=== PATIENT | female | born 1980 | race Caucasian/White ===

== ENCOUNTER 2017-04-15 05:00 | Inpatient (IN) | payer MEDICAID ==
[2017-04-15] MEDS ORDERED: CARBOPROST 250 MCG INJ IM ×2 (05:30→21:30)
[2017-04-15] MEDS ORDERED: METHYLERGONOVINE 0.2 MG INJ IM ×2 (05:30→21:30)
[2017-04-15] MEDS ORDERED: LIDOCAINE 1% (MPF) 30 ML INJ INJ (05:30)
[2017-04-15] MEDS ORDERED: MISOPROSTOL 200 MCG TAB PR ×2 (05:30→21:30)
[2017-04-15] MEDS ORDERED: IBUPROFEN 600 MG TAB PO (05:30)
[2017-04-15] MEDS ORDERED: OXYTOCIN 30 UNITS/LR 500 ML IV ×3 (05:30→21:30)
[2017-04-15] MEDS ORDERED: BUTORPHANOL 2 MG INJ IV (05:30)
[2017-04-15] MEDS: LACTATED RINGER'S 1,000 ML IV ×4 (06:00→17:57)
[2017-04-15 06:28] LABS: ADD MAN DIFF? NO
[2017-04-15 06:32] LABS: WHITE BLOOD COUNT 9.7 10^3/ul (4.8-10.8)
[2017-04-15 06:32] LABS: BASOPHILS % 0.4 % (0.0-2.0); EOSINOPHILS # 0.1 10^3/ul (0.0-0.5); HEMATOCRIT 36.8 % (37.0-47.0); HEMOGLOBIN 12.6 g/dl (12.0-16.0); LYMPHOCYTES # 2.4 10^3/ul (0.8-2.9); LYMPHOCYTES % 24.9 % (15.0-51.0); MEAN CORPUSCULAR HGB CONC 34.2 g/dl (32.0-37.0); MEAN CORPUSCULAR VOLUME 90.6 fl (82.0-101.0); MEAN PLATELET VOLUME 9.8 fl (7.4-10.4); MONOCYTE # 0.6 10^3/ul (0.3-0.9); MONOCYTES % 6.4 % (0.0-11.0); NEUTROPHIL # 6.5 10^3/ul (1.6-7.5); NEUTROPHILS % 66.7 % (39.0-77.0); PLATELET COUNT 364 10^3/UL (140-415); RED BLOOD COUNT 4.06 10^6/ul (4.20-5.40); RED CELL DISTRIBUTION WIDTH 12.9 % (11.5-14.5)
[2017-04-15 06:52] LABS: ADD UMIC YES; INR 0.99; PROTIME 13.2 Sec (11.9-14.9); UR ASCORBIC ACID NEGATIVE (NEGATIVE); UR BACTERIA FEW /HPF (NONE SEEN); UR BILIRUBIN (Dip) NEGATIVE (NEGATIVE); UR BLOOD (Dip) 1+ mg/dL (NEGATIVE); UR CLARITY CLEAR (CLEAR); UR COLOR YELLOW (YELLOW); UR GLUCOSE (Dip) NEGATIVE (NEGATIVE); UR KETONES (Dip) NEGATIVE (NEGATIVE); UR LEUKOCYTE ESTERASE (Dip) NEGATIVE Leu/ul (NEGATIVE); UR NITRITE (Dip) NEGATIVE (NEGATIVE); UR RBC 11 /HPF (0-5); UR SPECIFIC GRAVITY (Dip) 1.015 (1.003-1.030); UR SQUAMOUS EPITHELIAL CELL FEW /HPF (FEW); UR TOTAL PROTEIN (Dip) NEGATIVE (NEGATIVE); UR UROBILINOGEN (Dip) NEGATIVE (NEGATIVE); UR WBC 1 /HPF (0-5)
[2017-04-15 06:53] LABS: PARTIAL THROMBOPLASTIN TIME 27.3 Sec (25.0-35.0)
[2017-04-15 07:00] LABS: ALANINE AMINOTRANSFERASE 25 IU/L (13-69); ALBUMIN 3.6 g/dl (3.3-4.9); ALBUMIN/GLOBULIN RATIO 1.12; ALKALINE PHOSPHATASE 100 IU/L (42-121); ANION GAP 14 (8-16); ASPARTATE AMINO TRANSFERASE 20 IU/L (15-46); BILIRUBIN,INDIRECT 0.2 mg/dl (0-1.1); BILIRUBIN,TOTAL 0.2 mg/dl (0.2-1.3); BLOOD UREA NITROGEN 9 mg/dl (7-20); CALCIUM 9.4 mg/dl (8.4-10.2); CARBON DIOXIDE 20 mmol/L (21-31); CHLORIDE 107 mmol/L (97-110); CREATININE 0.47 mg/dl (0.44-1.00); GLUCOSE 98 mg/dl (70-220); SODIUM 137 mmol/L (135-144); TOTAL PROTEIN 6.8 g/dl (6.1-8.1); URIC ACID 4.8 mg/dl (3.1-7.9)
[2017-04-15 07:32] LABS: HEPATITIS B SURFACE ANTIGEN NEGATIVE (NEGATIVE)
[2017-04-15] MEDS: OXYTOCIN 30 UNITS/LR 500 ML IV ×2 (09:22→18:59)
[2017-04-15] MEDS: MINERAL OIL LIGHT 10 ML VIAL TOP (10:00)
[2017-04-15] MEDS ORDERED: FENTAnyl 2MCG/ML-ROPIV 0.2% 100 ML (13:32)
[2017-04-15 15:01] LABS: RAPID PLASMA REAGIN NONREACTIVE (NR)
[2017-04-15] MEDS ORDERED: TRIMETHOBENZAMIDE 100 MG/ML VIAL IM (16:30)
[2017-04-15] MEDS ORDERED: DIPHENHYDRAMINE 50 MG INJ IV (16:30)
[2017-04-15] MEDS ORDERED: ONDANSETRON 4 MG INJ IV (16:30)
[2017-04-15] MEDS ORDERED: NALOXONE (0.4 MG/ML) INJ IV (16:30)
[2017-04-15] MEDS ORDERED: TERBUTALINE 1 ML (17:19)
[2017-04-15] MEDS: FENTAnyl 2MCG/ML-ROPIV 0.2% 100 ML BAG EPI (17:26)
[2017-04-15] MEDS: TERBUTALINE 1 MG/ML INJ SC (17:36)
[2017-04-15] MEDS ORDERED: AMPICILLIN 2 GM/NS (PMX) 100 ML (17:49)
[2017-04-15] MEDS: AMPICILLIN 2 GM/NS (PMX) 100 ML IVPB (17:57)
[2017-04-15] MEDS ORDERED: SODIUM CHLORIDE 0.9% 1L IRRIG IRR (18:00)
[2017-04-15] MEDS ORDERED: MEPERIDINE 25 MG INJ ×2 (20:23)
[2017-04-15] MEDS: MEPERIDINE 50 MG INJ IV (20:28)
[2017-04-15] MEDS ORDERED: AMPICILLIN 1 GM/NS (PMX) 50 ML IVPB (21:00)
[2017-04-15] MEDS ORDERED: ZOLPIDEM 5 MG TAB PO (21:30)
[2017-04-15] MEDS ORDERED: HYDROCODONE/APAP (5/325) TAB PO ×2 (21:30)
[2017-04-15] MEDS ORDERED: WITCH HAZEL/GLYCERIN PAD PR (21:30)
[2017-04-15] MEDS ORDERED: DIBUCAINE 1% 30 GM OINT PR (21:30)
[2017-04-15] MEDS ORDERED: BENZOCAINE 20% 56 ML SPRAY TOP (21:30)
[2017-04-15] MEDS: SENNA/DOCUSATE NA (8.6MG/50MG) TAB PO (23:15)
[2017-04-15] MEDS: MAGNESIUM HYDROXIDE 30ML CUP PO (23:15)
[2017-04-15] MEDS: LACTATED RINGER'S 1,000 ML IV* (23:17)
[2017-04-15] MEDS: CEPHALEXIN 500 MG CAP PO (23:56)
[2017-04-15] MEDS: IBUPROFEN 600 MG TAB PO (23:56)
[2017-04-15] MEDS: LANOLIN 7 GM TUBE TOP (23:56)
[2017-04-16] MEDS: LACTATED RINGER'S 1,000 ML IV* ×3 (05:20→21:20)
[2017-04-16] MEDS: CEPHALEXIN 500 MG CAP PO ×4 (05:47→23:44)
[2017-04-16] MEDS: IBUPROFEN 600 MG TAB PO ×4 (05:47→23:44)
[2017-04-16] MEDS: SENNA/DOCUSATE NA (8.6MG/50MG) TAB PO ×2 (09:05→21:48)
[2017-04-16] MEDS: MAGNESIUM HYDROXIDE 30ML CUP PO ×2 (09:05→21:48)
[2017-04-16 09:16] LABS: ADD MAN DIFF? NO
[2017-04-16 09:21] LABS: WHITE BLOOD COUNT 13.1 10^3/ul (4.8-10.8)
[2017-04-16 09:21] LABS: BASOPHILS % 0.2 % (0.0-2.0); EOSINOPHILS # 0.1 10^3/ul (0.0-0.5); EOSINOPHILS % 0.5 % (0.0-7.0); HEMATOCRIT 34.2 % (37.0-47.0); HEMOGLOBIN 11.3 g/dl (12.0-16.0); LYMPHOCYTES % 15.6 % (15.0-51.0); MEAN CORPUSCULAR HEMOGLOBIN 30.7 pg (29.0-33.0); MEAN CORPUSCULAR VOLUME 92.9 fl (82.0-101.0); MEAN PLATELET VOLUME 9.7 fl (7.4-10.4); MONOCYTE # 0.8 10^3/ul (0.3-0.9); NEUTROPHIL # 10.1 10^3/ul (1.6-7.5); NEUTROPHILS % 77.2 % (39.0-77.0); PLATELET COUNT 329 10^3/UL (140-415); RED BLOOD COUNT 3.68 10^6/ul (4.20-5.40); RED CELL DISTRIBUTION WIDTH 13.1 % (11.5-14.5)
[2017-04-17] MEDS: LACTATED RINGER'S 1,000 ML IV* (05:20)
[2017-04-17] MEDS: CEPHALEXIN 500 MG CAP PO ×2 (05:41→12:02)
[2017-04-17] MEDS: IBUPROFEN 600 MG TAB PO ×2 (05:41→12:02)
[2017-04-17] MEDS: MEASLES,MUMPS,RUBELLA VACCINE INJ SC* (09:00)
[2017-04-17] MEDS: VARICELLA VACCINE LIVE/PF 1,350 UNIT/0.5 ML ML SC* (09:00)
[2017-04-17] MEDS: MAGNESIUM HYDROXIDE 30ML CUP PO (10:22)
[2017-04-17] MEDS: SENNA/DOCUSATE NA (8.6MG/50MG) TAB PO (10:22)
[2017-04-17] MEDS: DIPHTH/TET/ACEL PERTUSS (ADULT) 0.5 ML VIAL IM* (10:23)
[2017-04-17 10:34] LABS: ADD MAN DIFF? NO
[2017-04-17 10:36] LABS: BASOPHIL # 0.1 10^3/ul (0.0-0.1); BASOPHILS % 0.5 % (0.0-2.0); EOSINOPHILS # 0.2 10^3/ul (0.0-0.5); EOSINOPHILS % 1.7 % (0.0-7.0); HEMATOCRIT 32.8 % (37.0-47.0); HEMOGLOBIN 10.8 g/dl (12.0-16.0); LYMPHOCYTES # 1.9 10^3/ul (0.8-2.9); LYMPHOCYTES % 18.9 % (15.0-51.0); MEAN CORPUSCULAR HEMOGLOBIN 30.9 pg (29.0-33.0); MEAN CORPUSCULAR HGB CONC 32.9 g/dl (32.0-37.0); MEAN CORPUSCULAR VOLUME 93.7 fl (82.0-101.0); MEAN PLATELET VOLUME 9.4 fl (7.4-10.4); MONOCYTE # 0.6 10^3/ul (0.3-0.9); MONOCYTES % 5.5 % (0.0-11.0); NEUTROPHIL # 7.2 10^3/ul (1.6-7.5); PLATELET COUNT 312 10^3/UL (140-415); RED CELL DISTRIBUTION WIDTH 13.2 % (11.5-14.5)
[2017-04-17 10:36] LABS: WHITE BLOOD COUNT 9.9 10^3/ul (4.8-10.8)
== END 2017-04-17 15:20 | disposition home or self-care (01) | DRG 775 ==
LOC: OBT 05:00 → L-D 05:00 → OBT 05:05 → L-D 05:05 → PP1 21:57
PROC: 10D07Z6 Extraction of Products of Conception, Vacuum, Via Natural or Artificial Opening (ICD-10-PCS; principal; 2017-04-15 07:00)
PROC: 0HQ9XZZ Repair Perineum Skin, External Approach (ICD-10-PCS; 2017-04-15 07:00)
DX: O76 Abnormality in fetal heart rate and rhythm complicating labor and delivery (principal); O70.0 First degree perineal laceration during delivery; Z37.0 Single live birth; Z3A.39 39 weeks gestation of pregnancy
CPT/HCPCS: 62319; 80053; 81001; 82962; 84560; 85025; 85384; 85610; 85730; 86592; 86850; 86900; 86901; 87340; 99464